=== PATIENT | female | born 2000 | race Caucasian/White ===

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

== ENCOUNTER 2023-12-28 20:10 | Outpatient (REF) | payer BC, SELFPAY ==
--- OUTSIDE RECORDS SUMMARY | 2023-12-28 20:17 | XMS_ITS | Encounter Summary ---
Author Organization [facility] [place] [address] Care Team Providers Care Pediatrician Name Role Phone Aiden Sargent MD Primary Care Provider [phone] Reason for Referral * Diagnostic Test (Routine) - Closed Specialty Diagnoses / Procedures Referred By Contac t Referred To Contact Cardiology Diagnoses Undiagnosed cardiac murmurs Syncope and collapse Orthostatic hypotension Procedures Echocardiogram Transthoracic([facility] or [facility]) Blanca De Dios MD [address] [place] [address] [facility] [place] [address] Referral ID Status Reason Start Date Expiration Date V isits Requested Visits Authorized [id number] Closed Specialty Service Requested 11/21/2020 05/19/2021 1 1 Reason for Visit * Diagnostic Test (Routine) - Closed Specialty Diagnoses / Procedures Referred By Contac t Referred To Contact Cardiology Diagnoses Undiagnosed cardiac murmurs Syncope and collapse Orthostatic hypotension Procedures Echocardiogram Transthoracic([facility] or [facility]) Blanca De Dios MD [address] [place] [address] [facility] [place] [address] Referral ID Status Reason Start Date Expiration Date V isits Requested Visits Authorized [id number] Closed Specialty Service Requested 11/21/2020 05/19/2021 1 1 Encounter Details Date Type Department Care Team (Latest Contact Info) Description 02/14/2021 8:12 AM EDT - 02/14/2021 11:59 PM EDT Hospital Encounter [place] [address] Blanca De Dios MD [address] [place] [address] Undiagnosed cardiac murmurs; Syncope and collapse; Orthostatic hypotension Discharge Disposition: Home Social History Tobacco Use Types Packs/Day Years Used Date Smoking Tobacco: Never Assessed Sex and Gender Information Value Date Recorded Sex Assigned at Not on file Gender Identity Not on file Sexual Orientation Not on file documented as of this encounter Plan of Treatment Not on file documented as of this encounter Procedures Procedure Name Priority Date/Time Associated Diagnosis Comments ECHO COMPLETE Routine 02/14/2021 9:36 AM EDT Undiagnosed cardiac murmurs Syncope and collapse Orthostatic hypotension documented in this encounter Results * ECHO COMPLETE (02/14/2021 9:36 AM EDT) EF 64 HEARTLAB SYSTEM Anatomical Region Laterality Modality Other 02/14/2021 Narrative 02/14/2021 9:59 AM EDT Procedure: ?Transthoracic Echocardiogram Patient: ?BOB MANNINGL I ?(Age): 2000(20y) Med Rec#: ? [id number] ?Sex: ?F ? [place] [facility] [place]Ht / Wt: ??165.1(cm)/56.7( Pt. Loc: ?Echo Lab ?BSA: ?1.62 Study Date: ?? 02/14/2021 ?Pt. Type: Outpatient Tape: ? Referring: ANI Reading: Ra Garcia ([id number]) Service Clerk: Ricci Shelton [facility] Diagnosis: *Syncope and collapse (R55) *Hypotension, unspecified (I95.9) Rhythm: ? Sinus BP: ? 108/57 SUMMARY: 1. The left ventricular chamber size is normal. ??Left ventricular wall thickness is normal. ??The quantitative left ventricular ejection fraction by biplane Blue's method is 64%. ??There are no left ventricular segmental wall motion abnormalities. 2. The right ventricle is normal in size. ??Right ventricular global systolic function is normal. 3. Valvular assessment is unremarkable. 4. See remainder of report for additional findings. Findings ? : Study Quality: ? Adequate Left Ventricle: ? The left ventricular chamber size is normal. ?Left ventricular wall thickness is normal. ?There is no evidence of LVOT obstruction. ?No ventricular septal defect is visualized. ?There is normal global left ventricular systolic function. ?The quantitative left ventricular ejection fraction by biplane Blue's method is 64%. ?There are no left ventricular segmental wall motion abnormalities. ?Left ventricular diastolic function is normal. ?Doppler assessment is consistent with normal left sided filling pressure. Left Atrium: ? The left atrium is normal in size. 21 ml/m2. Right Ventricle: ? The right ventricle is normal in size. ?Right ventricular global systolic function is normal. ?Pulmonary artery hypertension could not be assessed due to inadequate tricuspid regurgitation jet. ?The estimated right atrial pressure is 3 mmHg. Right Atrium: ? The right atrium is normal in size. Aortic Valve: ? The aortic valve is probably tricuspid. ?There is no evidence of aortic valve stenosis. ?There is no evidence of aortic regurgitation. Mitral Valve: ? The mitral valve leaflets appear normal. ?There is trace mitral regurgitation present. Tricuspid Valve: ? The tricuspid valve leaflets are morphologically normal. ?There is trace tricuspid regurgitation present. Pulmonic Valve: ? The pulmonic valve appears normal. Pericardium: ? There is no pericardial effusion. Aorta: ? The aortic root is normal in size. ?The ascending aorta is normal in size. ?The left main coronary artery is visualized and originates normally from the aorta. ?The right coronary artery is visualized and originates normally from the aorta. ?There is no evidence of coarctation of the aorta. Pulmonary Artery: ? The main pulmonary artery appears normal. Venous: ? The inferior vena cava appears normal in size. ?There is a greater than 50% respiratory change in the inferior vena cava dimension. Misc: ? See remainder of report for additional findings. ?Two-dimensional echo, spectral Doppler and color Doppler performed. Chambers 2D ?Value ?Units (Range) ? IVSd (2D) ? 0.68 ? cm ? LVPWd (2D) ?0.87 ? cm ? IVS:LVPW ratio (2D) 0.79 ? ratio ? RWT (2D) ?0.38 ? ratio ? RWT PW (2D) ? 0.42 ? ratio ? LVIDd (2D) ?4.12 ? cm ? LVIDs (2D) ?2.96 ? cm ? LVIDd (2D) index ?2.55 ? cm/m2 ? LVIDs (2D) index ?1.83 ? cm/m2 ? LV FS (2D) ?28.23 ?% ? EF Teichholz (2D) ?? 55 ? % ? Ao root diameter (2D2.91 ? cm (2.1 - 3.6) ? Ascending Ao ?2.53 ? cm (2 - 3.5) ? Volumes/Mass ?Value ?Units (Range) ? LA Area 4 CH ?14 ? cm2 (<21) ? LA ESV BP (A/L) inde22.68 ?ml/m2 ? RA AREA 4CH ? 12 ? cm2 ? LA ESV BP (MOD) inde21 ? ml/m2 ? LV ESV SP 4CH (MOD) 37.3 ? ml ? LV ESV SP 2CH (MOD) 28.27 ?ml ? LV EDV BP ? 93.49 ?ml ? LV ESV BP ? 33.87 ?ml ? LV EDV BP index ? 57.71 ?ml/m2 ? LV ESV BP index ? 20.91 ?ml/m2 ? BP EF (MOD) ? 63.78 ?% ? LV mass (2D) ?94.29 ?g ? LV mass (2D) index ??58.21 ?g/m2 ? Diastolic/Systolic Function ?Value ?Units (Range) ? MV E-wave Vmax ?0.9 ?m/sec ? MV deceleration nsak808.95 ? msec ? MV A-wave Vmax ?0.48 ? m/sec ? MV E:A ratio ?1.88 ? ratio ? LV septal e' Vmax ?? 0.14 ? m/sec ? LV lateral e' Vmax ??0.16 ? m/sec ? LV average e' Vmax ??0.15 ? m/sec ? LV E:e' septal ratio6.41 ? ratio ? LV E:e' lateral rati5.61 ? ratio ? LV average E:e' rati5.99 ? ratio ? Aortic Valve ?Value ?Units (Range) ? AV Vmax ? 1.3 ?m/sec ? AV peak gradient ?6.72 ? mmHg ? LVOT diameter ? 1.99 ? cm ? LVOT Vmax ? 1.02 ? m/sec ? LVOT peak gradient ??4.16 ? mmHg ? DOI (Vmax) ?0.79 ? ratio ? KAYLA (continuity Vmax2.46 ? cm2 ? KAYLA (continuity Vmax1.52 ? cm2/m2 ? Tricuspid Valve ?Value ?Units (Range) ? RAP ? 3 ?mmHg ? This report has been electronically signed by: Ra Garcia MD ? 02/14/2021 09:58:23 Images reviewed and interpretation verified [facility] Cardiac Ultrasound Laboratory Procedure Note Ra Garcia MD - 02/14/2021 Procedure: Transthoracic Echocardiogram Patient: BOB Ames DOB(Age): 2000(20y) Med Rec#: [id number] Sex: F [place] [facility] [place]t / Wt: 165.1(cm)/56.7( Pt. Loc: Echo Lab BSA: 1.62 Study Date: 02/14/2021 Pt. Type: Outpatient Tape: Referring: GILBERTLÓPEZ Reading: Ra GarciaEla ([id number]) Service Clerk: Ricci Shelton RDCS, FASE Diagnosis: *Syncope and collapse (R55) *Hypotension, unspecified (I95.9) Rhythm: Sinus BP: 108/57 SUMMARY: 1. The left ventricular chamber size is normal. Left ventricular wall thickness is normal. The quantitative left ventricular ejection fraction by biplane Blue's method is 64%. There are no left ventricular segmental wall motion abnormalities. 2. The right ventricle is normal in size. Right ventricular global systolic function is normal. 3. Valvular assessment is unremarkable. 4. See remainder of report for additional findings. Findings : Study Quality: Adequate Left Ventricle: The left ventricular chamber size is normal. Left ventricular wall thickness is normal. There is no evidence of LVOT obstruction. No ventricular septal defect is visualized. There is normal global left ventricular systolic function. The quantitative left ventricular ejection fraction by biplane Blue's method is 64%. There are no left ventricular segmental wall motion abnormalities. Left ventricular diastolic function is normal. Doppler assessment is consistent with normal left sided filling pressure. Left Atrium: The left atrium is normal in size. 21 ml/m2. Right Ventricle: The right ventricle is normal in size. Right ventricular global systolic function is normal. Pulmonary artery hypertension could not be assessed due to inadequate tricuspid regurgitation jet. The estimated right atrial pressure is 3 mmHg. Right Atrium: The right atrium is normal in size. Aortic Valve: The aortic valve is probably tricuspid. There is no evidence of aortic valve stenosis. There is no evidence of aortic regurgitation. Mitral Valve: The mitral valve leaflets appear normal. There is trace mitral regurgitation present. Tricuspid Valve: The tricuspid valve leaflets are morphologically normal. There is trace tricuspid regurgitation present. Pulmonic Valve: The pulmonic valve appears normal. Pericardium: There is no pericardial effusion. Aorta: The aortic root is normal in size. The ascending aorta is normal in size. The left main coronary artery is visualized and originates normally from the aorta. The right coronary artery is visualized and originates normally from the aorta. There is no evidence of coarctation of the aorta. Pulmonary Artery: The main pulmonary artery appears normal. Venous: The inferior vena cava appears normal in size. There is a greater than 50% respiratory change in the inferior vena cava dimension. Misc: See remainder of report for additional findings. Two-dimensional echo, spectral Doppler and color Doppler performed. Chambers 2D Value Units (Range) IVSd (2D) 0.68 cm LVPWd (2D) 0.87 cm IVS:LVPW ratio (2D) 0.79 ratio RWT (2D) 0.38 ratio RWT PW (2D) 0.42 ratio LVIDd (2D) 4.12 cm LVIDs (2D) 2.96 cm LVIDd (2D) index 2.55 cm/m2 LVIDs (2D) index 1.83 cm/m2 LV FS (2D) 28.23 % EF Teichholz (2D) 55 % Ao root diameter (2D2.91 cm (2.1 - 3.6) Ascending Ao 2.53 cm (2 - 3.5) Volumes/Mass Value Units (Range) LA Area 4 CH 14 cm2 (<21) LA ESV BP (A/L) inde22.68 ml/m2 RA AREA 4CH 12 cm2 LA ESV BP (MOD) inde21 ml/m2 LV ESV SP 4CH (MOD) 37.3 ml LV ESV SP 2CH (MOD) 28.27 ml LV EDV BP 93.49 ml LV ESV BP 33.87 ml LV EDV BP index 57.71 ml/m2 LV ESV BP index 20.91 ml/m2 BP EF (MOD) 63.78 % LV mass (2D) 94.29 g LV mass (2D) index 58.21 g/m2 Diastolic/Systolic Function Value Units (Range) MV E-wave Vmax 0.9 m/sec MV deceleration xusc511.95 msec MV A-wave Vmax 0.48 m/sec MV E:A ratio 1.88 ratio LV septal e' Vmax 0.14 m/sec LV lateral e' Vmax 0.16 m/sec LV average e' Vmax 0.15 m/sec LV E:e' septal ratio6.41 ratio LV E:e' lateral rati5.61 ratio LV average E:e' rati5.99 ratio Aortic Valve Value Units (Range) AV Vmax 1.3 m/sec AV peak gradient 6.72 mmHg LVOT diameter 1.99 cm LVOT Vmax 1.02 m/sec LVOT peak gradient 4.16 mmHg DOI (Vmax) 0.79 ratio KAYLA (continuity Vmax2.46 cm2 KAYLA (continuity Vmax1.52 cm2/m2 Tricuspid Valve Value Units (Range) RAP 3 mmHg This report has been electronically signed by: Ra Garcia MD 02/14/2021 09:58:23 Images reviewed and interpretation verified [facility] Ul[facility] Blanca De Dios MD ECHO ORDERABLES documented in this encounter Visit Diagnoses Diagnosis Undiagnosed cardiac murmurs Syncope and collapse Orthostatic hypotension documented in this encounter Care Teams Pediatrician Relationship Specialty Start Date End Date Aiden Sargent MD [address] [place] [address] PCP - General Internal Medicine 12/10/20 documented as of this encounter
--- OUTSIDE RECORDS SUMMARY | 2023-12-28 20:17 | XMS_ITS | Encounter Summary ---
Author Organization [facility] Address [address] [place] [address] Care Team Providers Care Iron Worker Name Role Phone Unavailable Primary Care Provider Unavailabl e Encounter Details Date Type Department Care Team (Late st Contact Info) Description 2020 Lab Requisition [facility] Pathology & Laboratory Medicine - [facility] [address] [place] [address] Outr Resulting Lab, Provider Social History Tobacco Use Types Packs/Day Years Used Date Smoking Tobacco: Never Assessed Sex and Gender Information Value Date Recorded Sex Assigned at Not on file Gender Identity Not on file Sexual Orientation Not on file documented as of this encounter Plan of Treatment Not on file documented as of this encounter Procedures Procedure Name Priority Date/Time Associated Diagnosis Comments [facility] Today 12/01/2020 9:40 EDT COVID-19 TESTING Routine 12/01/2020 9:40 EDT documented in this encounter Results * COVID-19 TEST [facility] LAB PCR (12/01/2020 9:40 EDT) Swab ENTIRE NASOPHARYNX / Unknown 12/01/2020 9:40 EDT 2020 17:37 EDT Provider Outr Resulting Lab MICROBIOLOGY - GENERAL ORDERABLES [facility] [address] [place] [address] * COVID-19 TESTING (12/01/2020 9:40 EDT) COVID-19 rt-PCR Result Negative Negative 12/03/2020 11:40 EDT [facility] Comment: This test has not been FDA cleared or approved. This test has been authorized by FDA under an EUA for use by authorized laboratories. This test has been authorized only for detection of nucleic acid from 2019-nCoV, not for any other viruses or pathogens. This test is only authorized for the duration of the declaration that circumstances exist justifying the authorization of emergency use of in vitro diagnostic tests for detection and/or diagnosis of 2019-nCoV under section 564(b)(1) of Act, 21 U.S.C ?? 360bbb-3(b) (1), unless the authorization is terminated or revoked sooner. Negative results do not preclude 2019-nCoV infection and should not be used as the sole basis for treatment or other patient management decisions. Negative results must be combined with clinical observations, patient history, and epidemiological information. Performed on the [employer] Fusion instrument Performing Lab [place] [facility] Lab 12/03/2020 11:40 EDT [facility] Swab 12/01/2020 9:40 EDT 2020 17:37 EDT Provider Outr Resulting Lab MICROBIOLOGY - GENERAL ORDERABLES [facility] [address] [place] [address] documented in this encounter Visit Diagnoses Not on filedocumented in this encounter
--- OUTSIDE RECORDS SUMMARY | 2023-12-28 20:17 | XMS_ITS | Continuity of Care Document ---
Author Organization [facility] Ambulatory Clinics Address [address] [place] [address] Care Team Providers Care Interior Design Coordinator Name Role Phone Aiden Sargent Primary Care Physician [phone] [facility]counter [facility] [id number] Date(s): 08/25/22 - 08/25/22 [facility] Ambulatory Clinics [address] [place], [place] [address] Encounter Diagnosis Encounter for screening examination for sexually transmitted disease(Discharge Diagnosis) - 08/25/22 Surveillance of previously prescribed contraceptive pill(Discharge Diagnosis) - 08/25/22 Discharge Disposition: Home or Self Care Attending Physician: Cherelle Chin APRN Allergies, Adverse Reactions, Alerts No Known Medication Allergies Substance Reaction Severity Status Walnuts Mild Active Functional Status 08/25/22 Other exposure to Infectious Disease Non e Medications Loryna 3 mg-0.02 mg oral tablet 1 tab, Oral, Daily, # 28 tab, 1 Refill(s), Pharmacy: [facility] Start Date: 08/20/22 Stop Date: 10/15/22 Status: Ordered Judith 3 mg-0.02 mg oral tablet 1 tab, Oral, Daily, # 84 tab, 0 Refill(s), MIGEL, Pharmacy: [facility] Start Date: 08/25/22 Stop Date: 11/17/22 Status: Ordered Vital Signs Most recent to oldest [Reference Range]: 1 Blood Pressure [90-140/60-90 mmHg] 100/6 5mmHg (08/25/22 2:14 PM) Weight 56.1 kg (08/25/22 2:14 PM) Weight Measured (lbs) 123.679 lb (08/25/22 2:14 PM) [place] Body Weight Calculated 56.909 kg (08/25/22 2:14 PM) Height 165 cm (08/25/22 2:14 PM) Height/Length Measured (inches) 64.96 in ch (08/25/22 2:14 PM) BSA Measured 1.6 m2 (08/25/22 2:14 PM) Body Mass Index 20.61 kg/m2 (08/25/22 2:14 PM) Body Mass Index Percentile 36.16 1 (08/25/22 2:14 PM) Height/Length Percentile 60.26 2 (08/25/22 2:14 PM) Weight Percentile 41.70 3 (08/25/22 2:14 PM) 1Result Comment: ^~:!Percentile Source -CDC 2Result Comment: ^~:!Percentile Source -CDC 3Result Comment: ^~:!Percentile Source -CDC Social History Social History Type Response Tobacco Never tobacco user T obacco Use:. Sex Female Physician Outpatient Note * Cherelle Chin, CASH POSTING CLERK: PERFORM Event Display: Office Clinic Note Physician Authored Date: [id number] KASSIE ROJAS Kwaku :2000 Age:21 years Sex:Female Visit Date:08/25/2022 Primary Care Physician: Aidne Sargent Chief Complaint pt is here irregular/ heavy periods. History of Present Illness Kassie started Judith for irregular cycles in 09/2019. Difference in flow for last 4 cycles on pill. She got a different generic pill and that is when she noticed a change. No other changes in diet/exercise/weight. 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 Physical Exam Vitals & Measurements BP:??100/65?? HT:??60.26??(Percentile)?? HT:??165??cm?? WT:??41.70??(Percentile)?? WT:??56.1??kg?? BMI:??36.16??(Percentile)?? BMI:??20.61?? BSA:??1.6?GENERAL?Healthy woman appearing her age, No apparent distress, Reasonable historian.?HEENT?PERRL.?? Assessment/Plan 1.??Surveillance of previously prescribed contraceptive pill??Z30.41 Discussed some options and will plan to try MIGEL for a few cycles and if she continues to experienceheavier cycles, we could consider changing the pill formulation. However, it would likely be a 21/7type pill which may not decrease the flow or duration compared with her current pill type. She willcall and let us know what she decides. ?? 2.??Encounter for screening examination for sexually transmitted disease??Z11.3 Screening sent and will call if tx is indicated. Ordered: Chlamydia trachomatis and Neisseria gonorrhoeae (GeneXpert), Urine, Routine Collect, 08/25/22 14:44:00 EDT, Once, Nurse collect, Print Label, Encounter for screening examination for sexually transmitted disease ?? Orders: Judith 3 mg-0.02 mg oral tablet, 1 tab, Oral, Daily, # 84 tab, 0 Refill(s), MIGEL, Pharmacy: [facility] Follow Up Instructions prn, Problem List/Past Medical History Ongoing No qualifying data Historical No qualifying data Medications Loryna 3 mg-0.02 mg oral tablet, 1 tab, Oral, Daily, 1 refills Judith 3 mg-0.02 mg oral tablet, 1 tab, Oral, Daily Allergies Walnuts No Known Medication Allergies Social History Alcohol Never Electronic Cigarette/Vaping Electronic Cigarette Use: Never. 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 Home/Environment Lives with Father, Mother. Sexual Sexually active: Yes. Substance Use Never Tobacco Never tobacco user Tobacco Use:. Family History Healthy adult: Mother and Father. Electronically Signed on 08/25/22 03:24 PM Cherelle Chin APRN Patient Care team information Care Team Personnel Name: Aiden Sargent Position: No Access Member Role: Primary Care Physician Address: Address: [address] [place] [id number] [place] Care Team Related Persons Name: KIRA ROJAS Address: Home [address], [place] [id number] [facility] Name: KIRA ROJAS Address: Home [address], [place] [id number] [facility]
--- OUTSIDE RECORDS SUMMARY | 2023-12-28 20:17 | XMS_ITS | Clinical Summary ---
[place] [address] Care Team Providers Care Cryptologist Name Role Phone Aiden Sargent MD Primary Care Provider [phone] Social History Tobacco Use Types Packs/Day Years Used Date Smoking Tobacco: Never Assessed Sex and Gender Information Value Date Recorded Sex Assigned at Not on file Gender Identity Not on file Sexual Orientation Not on file Plan of Treatment Health Maintenance Due Date Last Done Comments Chlamydia Screening 2017 HPV vaccine (1 - 3-dose series) 2017 HIV screen 2020 Hepatitis C Screening 2020 Hepatitis B vaccine (0-59 yrs) (1) 2021 Tdap adult 2021 Tetanus vaccine 2021 Covid-19 Vaccine ( - 2022-24 season) 2023 PAP Smear 12/03/2023 Influenza (Flu) vaccine (1 o f 1 - Influenza standard series) 01/24/2024 Care Teams Cryptologist Relationship Specialty Start Date End Date Aiden Sargent MD [address] [place] [address] PCP - General Internal Medicine 12/10/20
--- OUTSIDE RECORDS SUMMARY | 2023-12-28 20:17 | XMS_ITS | Continuity of Care Document ---
Author Organization [facility] Address [address] [place] [address] Care Team Providers Care Sulfonation Equipment Operator Name Role Phone Aiden Sargent Primary Care Physician Encounter [facility] FIN NBR [id number] Date(s): 08/25/22 - 08/25/22 [facility] [address] [place] [address]- Encounter Diagnosis Encounter for screening examination for sexually transmitted disease(Discharge Diagnosis) - 08/25/22 Encounter for screening for infections with a predominantly sexual mode of transmission(Final) - Discharge Disposition: Home or Self Care Attending Physician: Cherelle Chin APRN Admitting Physician: Cherelle Chin APRN Allergies, Adverse Reactions, Alerts No Known Medication Allergies Substance Reaction Severity Status Walnuts Mild Active Medications Loryna 3 mg-0.02 mg oral tablet 1 tab, Oral, Daily, # 28 tab, 1 Refill(s), Pharmacy: [id number] Start Date: 08/20/22 Stop Date: 10/15/22 Status: Ordered Judith 3 mg-0.02 mg oral tablet 1 tab, Oral, Daily, # 84 tab, 0 Refill(s), MIGEL, Pharmacy: [id number] Start Date: 08/25/22 Stop Date: 11/17/22 Status: Ordered Results Laboratory List Name Date Chlamydia trachomatis and Neisseria gono rrhoeae ([facility]) 08/25/22 Most recent to oldest [Reference Range]: 1 Chlamydia trachomatis DNA -[facility] [No t Detected] Not Detected (08/25/22 2:45 PM) Neisseria gonorrhoeae DNA -[facility] [No t Detected] Not Detected (08/25/22 2:45 PM) Social History Social History Type Response Tobacco Never tobacco user T obacco Use:. Sex Female Patient Care team information Care Team Personnel Name: Aiden Sargent Position: No Access Member Role: Primary Care Physician Address: Address: [address] [place] [phone] [place] Care Team Related Persons Name: LAYNEAVINASH KIRA Paulo Address: Home [address] [place], [place] [id number] [facility] Name: KIRA ROJAS Address: Home [address] [place], [place] [id number] [facility]
--- OUTSIDE RECORDS SUMMARY | 2023-12-28 20:17 | XMS_ITS | Clinical Summary ---
Author Organization [facility] Address [address] [place] [address] Care Team Providers Care Target Setter Name Role Phone Unavailable Primary Care Provider Unavailabl e Social History Tobacco Use Types Packs/Day Years Used Date Smoking Tobacco: Never Assessed Sex and Gender Information Value Date Recorded Sex Assigned at Not on file Gender Identity Not on file Sexual Orientation Not on file Plan of Treatment Health Maintenance Due Date Last Done Comments Hepatitis C Screen 2002 Hepatitis B Vaccine (1 of 3 - 19+ 3-dose series) 12/02 COVID-19 Vaccine (2022-24 season) 2023
--- OUTSIDE RECORDS SUMMARY | 2023-12-28 20:17 | XMS_ITS | Referral Summary ---
Author Organization [facility] Address [address] [place] [address] Care Team Providers Care Anesthesiology Fellow Name Role Phone Unavailable Primary Care Provider Unavailabl e Social History Tobacco Use Types Packs/Day Years Used Date Smoking Tobacco: Never Assessed Sex and Gender Information Value Date Recorded Sex Assigned at Not on file Gender Identity Not on file Sexual Orientation Not on file Plan of Treatment Not on file
== END 2023-12-28 20:11 | disposition home or self-care (01) ==
LOC: LBN 20:10
PROVIDERS: PCP Internal Medicine; Visit Provider Nurse Practitioner Family
DX: J02.9 Acute pharyngitis, unspecified (principal)
CPT/HCPCS: 87070

== ENCOUNTER 2024-08-10 18:20 | Outpatient (REF) | payer BC, SELFPAY ==
[2024-08-10 21:15] LABS: HCT 36.9 % (36.0-46.0); HGB 12.3 g/dL (11.2-15.7); MCH 28.5 pg (27.0-33.0); MCHC 33.3 % (32.0-36.0); MCV 85 fL (80-95); MPV 10.9 fL (8.0-11.0); Platelet Count 266 10^3/uL (130-400); RBC 4.32 10^6/uL (3.93-5.22); RDW-SD 40.1 fL; WBC 8.22 10^3/uL (4.4-10.8)
[2024-08-10 21:55] LABS: TSH (W/Ref FT4) 1.01 uIU/mL (0.36-3.74)
== END 2024-08-10 18:21 | disposition home or self-care (01) ==
LOC: NCHCN 18:20
PROVIDERS: PCP Internal Medicine; Visit Provider Nurse Practitioner Family
DX: R53.83 Other fatigue (principal)
CPT/HCPCS: 85027; 84443